=== PATIENT | male | born 1960 | race Caucasian/White ===

== ENCOUNTER 2020-04-17 17:01 | Emergency (ER) | payer BC ==
--- NOTE | 2020-04-17 18:57 | EDM.PDOC ---
ED HPI GENERAL MEDICAL PROBLEM - General Chief Complaint: Lower Extremity Injury/Pain Stated Complaint: PAIN IN RT FOOT Time Seen by Provider: 04/17/20 18:15 Source of Information: Reports: Patient, Family History Limitations: Reports: No Limitations - History of Present Illness INITIAL COMMENTS - FREE TEXT/NARRATIVE: 59-year-old with foot pain for the past several days. It is become much worse the last 2 or 3 hours, especially with weightbearing or certain range of motion. It started several days ago when he was helping remove a dock and tweaked his right knee, he thinks he has been walking with discomfort which has put extra stress on the foot and now developed foot pain. No specific trauma to the foot itself. The pain is lateral, starts in the arch of the foot and works its way through to the top. There is no swelling or redness. No bruising. Onset: Gradual Duration: Day(s): (Several days) Location: Reports: Lower Extremity, Right Associated Symptoms: Reports: No Other Symptoms Right Foot Pain Score (Numeric/FACES): 8 - Related Data Allergies Allergy/AdvReac Type Severity Reaction Status Date / Time No Known Allergies Allergy Verified 04/17/20 17:40 Home Meds: Home Meds Rivaroxaban [Xarelto] 20 mg PO BID 04/17/20 [History] Sotalol HCl [Sotalol] 240 mg PO DAILY 04/17/20 [History] Tamsulosin [Tamsulosin 24 Hr] 0.4 mg PO DAILY 04/17/20 [History] buPROPion [Wellbutrin SR] 300 mg PO DAILY 04/17/20 [History] Past Medical History HEENT History: Reports: None Cardiovascular History: Reports: Afib Respiratory History: Reports: None Gastrointestinal History: Reports: None Genitourinary History: Reports: BPH Musculoskeletal History: Reports: None Neurological History: Reports: None Psychiatric History: Reports: Anxiety, Depression Endocrine/Metabolic History: Reports: None Hematologic History: Reports: None Immunologic History: Reports: None Oncologic (Cancer) History: Reports: None Dermatologic History: Reports: None - Infectious Disease History Infectious Disease History: Reports: Chicken Pox - Past Surgical History Cardiovascular Surgical History: Reports: Cardiac Ablation Social & Family History - Tobacco Use Smoking Status *Q: Never Smoker - Caffeine Use Caffeine Use: Reports: None - Recreational Drug Use Recreational Drug Use: No Review of Systems - Review of Systems Review Of Systems: See Below Constitutional: Denies: Fever Respiratory: Denies: Shortness of Breath Cardiovascular: Reports: Other (Recent ablation which was successful, for atrial fibrillation). Denies: Chest Pain Musculoskeletal: Reports: Other (Knee is still sore but not swollen) Skin: Denies: Bruising, Erythema Neurological: Denies: Paresthesia (No numbness of the foot) ED EXAM, GENERAL - Physical Exam Exam: See Below Exam Limited By: No Limitations General Appearance: Alert, No Apparent Distress Respiratory/Chest: No Respiratory Distress, Lungs Clear Extremities: Other (Exam is otherwise limited to the right lower extremity. He has no significant tenderness to palpation around the knee, no effusion, ligaments are nontender when stressed. No pain with palpation of the medial or lateral malleoli are area of the right foot. He does have tenderness to palpation on the top of the foot over the fourth and fifth metatarsal, and in the arch of the foot. There is no bruising or swelling or erythema.) Course - Vital Signs Last Recorded V/S: Last Vital Signs Temp 97.6 F 04/17/20 17:37 Pulse 75 04/17/20 17:37 Resp 16 04/17/20 17:37 BP 129/77 04/17/20 17:37 Pulse Ox 97 04/17/20 17:37 - Orders/Labs/Meds Orders: Active Orders 24 hr Category Date Time Status Foot Comp Min 3V Rt [CR] Stat Exams 04/17/20 18:09 Taken - Re-Assessments/Exams Free Text/Narrative Re-Assessment/Exam: 04/17/20 19:29 A 4 inch North wrap was applied to the foot and he was offered crutches which she declined. I also offered him some stronger pain medication which she declined. A copy of the x-ray was given, he will take a dose of ibuprofen or naproxen sparingly as he is on Eliquis, and increase activity as tolerated. Recheck in 7 to 10 days if not improving satisfactorily, or return sooner if worsening such as fever, redness or increased swelling Departure - Departure Time of Disposition: 19:08 Disposition: Home, Self-Care 01 Clinical Impression: Right foot strain Qualifiers: Encounter type: initial encounter Qualified Code(s): S96.911A - Strain of unspecified muscle and tendon at ankle and foot level, right foot, initial encounter - Discharge Information Instructions: Foot Sprain Referrals: PCP,None [Primary Care Provider] - Forms: ED Department Discharge Care Plan Goals: Wrap foot for comfort, elevate when able and an occasional dose of ibuprofen or naproxen may be helpful. Increase activity as tolerated and recheck in 7 to 10 days if not improving satisfactorily. Return sooner if worsening such as fever, redness or increased swelling or pain. Sepsis Event Note (ED) - Evaluation Sepsis Screening Result: No Definite Risk - Focused Exam Vital Signs: Vital Signs Temp Pulse Resp BP Pulse Ox 04/17/20 17:37 97.6 F 75 16 129/77 97 - My Orders Last 24 Hours: My Active Orders 04/17/20 18:09 Foot Comp Min 3V Rt [CR] Stat - Assessment/Plan Last 24 Hours: My Active Orders 04/17/20 18:09 Foot Comp Min 3V Rt [CR] Stat
--- NOTE | 2020-04-19 09:43 | CR ---
Foot Comp Min 3V Rt CLINICAL HISTORY: Pain, injury FINDINGS: There is no acute fracture or dislocation within the foot. No destructive changes are present. There is some articular irregularity and some sclerosis in the talar dome suggested on the lateral. IMPRESSION: No acute bony process. There is some irregularity of the talar dome. This is not well seen on foot study. If there is clinical symptomatology ankle exam should be considered.
== END 2020-04-17 19:08 | disposition home or self-care (01) ==
LOC: JP.ED 17:01
DX: S96.911A Strain of unspecified muscle and tendon at ankle and foot level, right foot, initial encounter (principal); F32.9 Major depressive disorder, single episode, unspecified; I48.91 Unspecified atrial fibrillation; N40.0 Benign prostatic hyperplasia without lower urinary tract symptoms; Z79.899 Other long term (current) drug therapy; Z79.01 Long term (current) use of anticoagulants; X50.9XXA Other and unspecified overexertion or strenuous movements or postures, initial encounter
CPT/HCPCS: 73630-26-RT; 73630-RT; 99283